=== PATIENT | female | born 1965 | race Caucasian/White ===

== ENCOUNTER 2020-04-15 09:43 | Emergency (ER) | payer OTHER, SELFPAY ==
[2020-04-15 09:56] VITALS: BP 100/52; PULSE 70; RESP 20; TEMP 37; O2SAT 100
--- NOTE | 2020-04-15 10:14 | ED.SKABFB ---
HPI - Skin/Abscess/Foreign Bdy General Chief complaint: Skin/Abscess/Foreign Body Stated complaint: Poison anastasia Time Seen by Provider: 04/15/20 10:14 Source: patient and RN notes reviewed Mode of arrival: ambulatory Limitations: no limitations History of Present Illness HPI narrative: 54 year old female who presents to express care with complaints of poison anastasia rash to bilateral forearms especially to the right arm. Patient states that she has taken 3 days of 60 mg of prednisone with no improvement in rash. Patient has large fluid filled vesicles on the inner aspect of right forearm along elbow region which is surrounded by red tissue. Patient states that she is leaving to go on vacation on and requests steroid shot for her rash. Patient denies any difficulty with swallowing or any problems with her breathing.Patient states that she usually gets poison anastasia rash yearly and this time she thinks she got it off of play toy she was throwing out in the yard for her dog. complaint: rash Onset (ago): day(s) (4 days) Tetanus up to date: yes Location: E and RUE Severity: moderate Severity scale (1-10): 3 Quality: aching and pruritic Pain Consistency: intermittent Relieving factors: none Exacerbating factors: palpation Context: other (outside playing with dog) Associated symptoms: denies other symptoms Treatments prior to arrival: corticosteroid (hydrocortisone ointment, prednisone) Related Data Home Medications Medication Instructions Recorded Confirmed atorvastatin 40 mg PO DAILY 04/15/20 04/15/20 hydrochlorothiazide 25 mg PO DAILY 04/15/20 04/15/20 Allergies Allergy/AdvReac Type Severity Reaction Status Date / Time calamine Allergy Unknown RASH Verified 04/15/20 10:04 Review of Systems Review of Systems: Narrative: CONSTITUTIONAL: Denies fever, chills, or sweats. EYES: Denies visual changes, redness, or discharge. ENT: Denies rhinorrhea, congestion, sore throat, or otalgia. CARDIOVASCULAR: Denies chest pain, palpitations, or edema. RESPIRATORY: Denies cough or dyspnea. GASTROINTESTINAL: Denies abdominal pain, nausea, vomiting, or diarrhea. GENITOURINARY: Denies dysuria or hematuria. SKIN: positive rash or itching to bilateral forearms with fluid filled vesicles noted on right forearm MUSCULOSKELETAL: Denies back pain, joint pain, or myalgia. NEUROLOGIC: Denies headache, numbness, or weakness. PSYCHIATRIC: Denies anxiety or depression. All systems reviewed & are unremarkable except as noted in HPI and below PMFSH Past Medical History Medical History (Updated 04/15/20 @ 14:07 by Nancy Cosme NP) Hyperlipidemia Hypertension Surgical History Surgical History (Updated 04/15/20 @ 14:13 by Nancy Cosme NP) No significant past surgical history Social History Social History (Updated 04/15/20 @ 13:53 by Nancy Cosme NP) Smoking status: Never smoker Living arrangements: with family Gender identity (if verbalized by the patient): Female Comments At time of signature, agree with nursing past medical, surgical, social history. There is no relevant family history pertinent to the presenting complaint Exam Narrative: Exam Narrative: GENERAL: Well-appearing, well-nourished, and in no acute distress. HEAD: Normocephalic, atraumatic. EYES: PERRLA and EOMI. ENT: Nares clear, no rhinorrhea or epistaxis. Mucous membranes moist. NECK: Supple.no lymphadenopathy CHEST: Clear to auscultation. No respiratory distress.SAO2 100% on room air. HEART: Regular rate and rhythm. No murmur heard. Normal peripheral pulses. ABDOMEN: Soft, nontender, nondistended, normal active bowel sounds. EXTREMITIES: Normal range of motion. No edema. SKIN: Warm, dry,large red fluid filled vesicles on right inner forearm and red raised vesicles on left forearm with no improvement in past three days despite being on Prednisone 60 mg daily for the past 3 days NEURO: No focal deficits. Alert and oriented x3. Course Vital Signs
[2020-04-15] MEDS: methylPREDNISolone ACETATE 80 MG/ML VIAL IM (10:44)
== END 2020-04-15 11:05 | disposition home or self-care (01) ==
PROVIDERS: Emergency Provider Registered Nurse; PCP Family Medicine
DX: L23.7 Allergic contact dermatitis due to plants, except food (principal); E78.5 Hyperlipidemia, unspecified; I10 Essential (primary) hypertension
CPT/HCPCS: 96372; 99203; G0463; J1040